=== PATIENT | male | born 1985 | race Caucasian/White ===

== ENCOUNTER 2016-09-20 16:22 | Inpatient (IN) | payer BC ==
[~2016-09-20] VITALS: Ht 180.3 cm; Wt 108.9 kg
[2016-09-20 16:37] VITALS: BP_SYST 127
[2016-09-20] MEDS ORDERED: ACETAMINOPHEN 500 MG TABLET PO ONE (18:00)
[2016-09-20 18:12] LABS: BILIRUBIN,URINE NEGATIVE (NEGATIVE); BLOOD, URINE NEGATIVE (NEGATIVE); CLARITY/URINE CLEAR (CLEAR); COLOR,URINE YELLOW (YELLOW); GLUCOSE,URINE NEGATIVE (NEGATIVE); KETONES,URINE NEGATIVE (NEGATIVE); LEUKOCYTE ESTERASE ,URINE NEGATIVE (NEGATIVE); NITRITE, URINE NEGATIVE (NEGATIVE); PROTEIN URINE NEGATIVE (NEGATIVE); UROBILINOGEN,URINE 0.2 (0.2-1.0)
[2016-09-20 18:21] LABS: CALCIUM 8.9 mg/dL (8.4-11.0); POTASSIUM 4.3 mmol/L (3.5-5.1)
[2016-09-20 18:22] LABS: CREATININE 1.46 mg/dL (0.55-1.30)
[2016-09-20 18:39] LABS: ALBUMIN 3.8 g/dL (3.4-4.8); TOTAL BILIRUBIN 0.3 mg/dL (0.0-1.0); TOTAL PROTEIN, SERUM 7.2 g/dL (6.4-8.3)
[2016-09-20 18:47] LABS: BASOPHILS # (AUTO) 0.2 K/uL (0.0-0.2); BASOPHILS % (AUTO) 1.9 % (0.0-2.0); EOSINOPHILS # (AUTO) 0.1 K/uL (0.0-0.4); EOSINOPHILS % (AUTO) 0.9 % (0.0-4.0); HEMATOCRIT 44.9 % (36-54); HEMOGLOBIN 14.9 g/dL (14.0-18.0); LYMPHOCYTES # (AUTO) 1.7 K/uL (1.0-5.5); LYMPHOCYTES % (AUTO) 16.8 % (20.5-51.5); MEAN CORPUSCULAR HEMOGLOBIN 29 pg (27-31); MEAN CORPUSCULAR HGB CONC 33 % (32-36); MEAN CORPUSCULAR VOLUME 87 fL (79.0-98.0); MONOCYTES # (AUTO) 0.9 K/uL (0.0-1.0); MONOCYTES % (AUTO) 8.8 % (1.7-9.3); NEUTROPHILS # (AUTO) 7.1 K/uL (1.8-7.7); NEUTROPHILS % (AUTO) 71.6 % (40.0-70.0); PLATELET COUNT (AUTO) 403 K/uL (130-430); RED BLOOD CELL COUNT(AUTO) 5.14 MIL/uL (4.2-6.2); RED CELL DISTRIBUTION WIDTH 13.3 % (9.0-15.0)
[2016-09-20] MEDS ORDERED: ASPIRIN 325 MG TABLET PO ONE (19:00)
[2016-09-20] MEDS ORDERED: HYDROcodone/ACETAMIN 5-325 MG TAB (NORCO/ VICODIN) PO ONE (19:00)
[2016-09-20 19:34] LABS: CKMB RELATIVE INDEX 0.9 (0.0-2.9); CREATINE KINASE MB 3.3 ng/mL (0-3.6)
[2016-09-20 19:43] VITALS: BP_SYST 150
[2016-09-20 20:00] VITALS: BP_SYST 150
[2016-09-20] MEDS: ASPIRIN 325 MG TABLET PO SCH (20:30)
[2016-09-20] MEDS: METOPROLOL TARTRATE 25 MG TABLET PO SCH ×2 (20:51→21:00)
[2016-09-20] MEDS: LORazepam 1 MG TABLET PO PRN (21:20)
[2016-09-20 23:59] VITALS: BP_SYST 129
[2016-09-20] MEDS: HYDROcodone/ACETAMIN 5-325 MG TAB (NORCO/ VICODIN) PO PRN (23:59)
[2016-09-21 04:08] VITALS: BP_SYST 93
[2016-09-21 04:10] VITALS: BP_SYST 114
[2016-09-21] MEDS: LORazepam 1 MG TABLET PO PRN (05:51)
[2016-09-21 08:00] VITALS: BP_SYST 121
[2016-09-21] MEDS: ASPIRIN 325 MG TABLET PO SCH (09:28)
[2016-09-21] MEDS: METOPROLOL TARTRATE 25 MG TABLET PO SCH (09:29)
[2016-09-21 12:26] VITALS: BP_SYST 115
[2016-09-21] MEDS: HYDROcodone/ACETAMIN 5-325 MG TAB (NORCO/ VICODIN) PO PRN (13:17)
[2016-09-21 16:25] VITALS: BP_SYST 120
[2016-09-21 18:42] VITALS: BP_SYST 120
== END 2016-09-21 19:10 | disposition home or self-care (01) | DRG 312 ==
LOC: SED 16:22 → STU 19:19
PROVIDERS: ADMIT Internal Medicine Hospice and Palliative Medicine; ATTEND Internal Medicine Hospice and Palliative Medicine
DX: R55 Syncope and collapse (principal); M62.82 Rhabdomyolysis; R07.89 Other chest pain; R42 Dizziness and giddiness; F12.90 Cannabis use, unspecified, uncomplicated; I44.1 Atrioventricular block, second degree; N28.9 Disorder of kidney and ureter, unspecified; Z82.49 Family history of ischemic heart disease and other diseases of the circulatory system
CPT/HCPCS: 36415; 70450-TC; 80053; 81003; 82550-TC; 82553-TC; 82962; 84484; 85025; 93005; 93306; 99285